=== PATIENT | female | born 1955 | race Caucasian/White ===

== ENCOUNTER 2016-12-20 18:38 | Emergency (ER) | payer MEDICAID ==
[~2016-12-20] VITALS: Ht 157.5 cm; Wt 58.5 kg
[~2016-12-20 18:38] MED LIST: ASPIRIN 81MG TA81 MG PO; ATORVASTATIN CA10 M1 PO; BUSPAR 10MG TAB10 MG PO; CLONAZEPAM0.5 M1 PO; CLOPIDOGREL75 M2 PO; GABAPENTIN300 M1 PO; KEFLEX 500MG.500 MG PO; LEVAQUIN500 MG PO; LOPRESSOR 25MG.25 M1 OR; MOTRIN 600MG.600 MG PO; PYRIDIUM200 M2 PO; TESSALON PERLE100 M1 PO; ZOFRAN ODT4 MG PO
[2016-12-20] MEDS ORDERED: BUSPAR 10MG TAB10 MG PO (18:55)
[2016-12-20] MEDS ORDERED: GABAPENTIN 600600 MG PO (18:56)
[2016-12-20] MEDS ORDERED: KLONOPIN 0.5MG0.5 MG NG (18:56)
[2016-12-20 19:12] LABS: HEMOGLOBIN 15.1 g/dL (12.2-16.2); LYMPH # 2.5 K/mm3 (0.7-4.5); LYMPH % 34.2 % (10-50.0)
--- NOTE | 2016-12-20 19:19 | Emergency Room Report ---
History of Present Illness Time Seen by [id number] Presenting Problem in Triage Pt arrived:Walked Presenting Problem:PT HAVING CHEST PAINS THIS MORNING, CALLED MD, WOULDN'T BE ABLE TO GET IN UNTIL MONDAY AND WAS SENT HERE. 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 N Clinical Suspician of Infection? N Mental Status: 1 - Regular (Normal Baseline) Sepsis Risk:Low Sepsis Risk Have you (or family members/close friends) recently traveled outside the [place]? N If Yes, where/when: Have you had exposure to infectious disease within the past month? TB? Other? Specify: 61 years old white female with history of vascular disease continues to smoke, at 2:30 AM she developed left-sided sharp back pain radiating to the anterior ribs. She took an aspirin and sat for half an hour and the pain resolved. 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 She came to the ER at 7 PM to be evaluated. She denies shortness of palpitations nausea vomiting dizziness and weakness. Normal pain for the past 17 hours. Source patient, RN notes reviewed, old records Exam Limitations no limitations ALLERGIES Coded Allergies: No Known Allergies (12/08/16) Home Medications Active Scripts Buspirone Hcl (Buspar 10MG) 10 MG PO BID 30 Days Prov: 10/02/14 CEPHALEXIN (Keflex 500MG Capsule) 500 MG PO Q8H #21 CAP Prov: 12/08/16 Phenazopyridine HCl (Pyridium) 200 MG PO TID #15 TAB Prov: 12/08/16 IBUPROFEN (Motrin 600MG) 600 MG PO Q8HP PRN pain #15 TAB Prov: 07/12/15 Benzonatate (Tessalon Perle) 100 MG PO Q4HP PRN couph #30 SGL Prov: 07/12/15 Reported Medications Atorvastatin Calcium 10 MG PO DAILY #30 Metoprolol Tartrate (Lopressor 25MG Tab (1/2 Of 50 MG)) 25 MG OR BID #30 Gabapentin 300 MG PO BID #90 CLOPIDOGREL BISULFATE (Clopidogrel) 75 MG PO DAILY #30 Clonazepam (Clonazepam 0.5MG) 0.5 MG PO BID #60 ASPIRIN (Aspirin) 81 MG PO DAILY Buspirone Hcl (Buspar 10MG) 10 MG PO TID Clonazepam (Klonopin 0.5MG) 0.5 MG NG TID Gabapentin (Gabapentin 600MG) 600 MG PO TID #90 History Medical History General CAD? No Angina: No OK: Yes Hypertension? Yes Hyperlipidemia? Yes CHF? No DVT? No PE? No COPD? No Asthma? No Anemia? No GERD? No Gastric ulcers? No GI Bleed? No Hernia? No Thyroid Problems? No Hypothyroidism? No CVA? Yes Seizures? No Diabetes? No Renal Insuffiency? No End Stage Renal Disease? No UTI? No Stones? No BPH? No GB Disease: No Nephritic Syndrome? No Asplenia? No Hepatitis? No Sickle Cell Disease? No Arthritis? No Migraines? No Cataracts? No Glaucoma? No MRSA? No HIV? No TB? No Anxiety? No Depression? No Cancer? No More? No Immunization Hx DT/Tetanus 1-4 Years Ago Flu Refused Pneumonia Never Had Surgical Hx Previous Surgery?Y RIGHT HAND STENTS IN BOTH LEGS Family History Family Hx Diabetes No CAD Yes Hypertension Yes Hyperlipidemia Yes Cancer Yes TB No Social History Smoking Hx Smoker: Current Every Day Smoker Tobacco: Yes Type Cigarettes Packs/day 1 1/2 - 2 Packs Alcohol Alcohol: No Review of Systems All Other Systems Reviewed and Negative Constitutional no symptoms reported Eyes no symptoms reported ENT no symptoms reported. Respiratory no symptoms reported Cardiovascular denies see HPI, chest pain Gastrointestinal no symptoms reported Genitourinary no symptoms reported. Musculoskeletal see HPI, back pain Skin no symptoms reported Psychiatric/Neurological no symptoms reported Physical Exam Vital Signs Vital Signs Date Time Temp Pulse Resp B/P Pulse O2 O2 Flow FiO2 Ox Delivery Rate 12/20 1849 97.7 89 20 195/94 98 General Appearance normal appearance, WD/WN Eye Exam - bilateral eye normal exam, bilateral eye PERRL, bilateral eye EOMI Ear, Nose, Throat hearing grossly normal, normal ENT inspection Neck normal inspection, non-tender, supple, full range of motion Respiratory Status Yes: trachea midline, chest symmetrical, non tender chest. No: respiratory distress. Lung Sounds bilateral: normal breath sounds, lungs clear. 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 No Results/Orders Laboratory Tests 12/20/161899: Sodium 142, Potassium 4.1, Chloride 106, Carbon Dioxide 26, BUN 12, Creatinine 0.7, Estimated Creat Clear 77, Estimated GFR (MDRD) 85, Glucose Pending, Calcium 9.0, Total Bilirubin 0.2, AST 31, ALT 51, Alkaline Phosphatase 157 H, Creatine Kinase 58, CK-MB (CK-2) Rel Index 0.9, CK and CKMB Interp < 0.5, Troponin I < 0.02, Total Protein 7.2, Albumin 3.7, Globulin 3.5 H, Albumin/Globulin Ratio 1.1, D-Dimer 230, WBC 7.2, RBC 4.96, Hgb 15.1, Hct 44.5, MCV 89.9, RDW 12.7, Plt Count 190, MPV 8.9, Gran % 54.4, Gran # 3.9, Lymphocytes % 34.2, Monocytes % 4.8 , Eosinophils % 5.6, Basophils % 1.0, Lymphocytes # 2.5, Monocytes # 0.4, Eosinophils # 0.4, Basophils # 0.1, PUBS MCHC 33.9, MCH 30.5 Current Medication Orders Sig/Deann Start time Last Medication Dose Route Stop Time Status Admin Sodium Chloride 10 ML PRN PRN 12/20 1899 AC IV 12/21 1858 Orders Procedure Date/time Status D-DIMER 12/20 1921 Complete ELECTROCARDIOGRAM REQUEST 12/20 1858 Active CHEST-PORTABLE 12/20 1858 Active IV SALINE LOCK 12/20 1858 Active CBC WITH AUTO DIFF 12/20 1858 Complete CARDIAC ENZYMES 12/20 1858 Active CHEM 12 PROFILE 12/20 1858 Active CM/EKG CM/EKG EKG rate, NSR, rhythm, no evid. of ischemic chgs, no ectopy, normal QRS, normal OK, normal EKG, no EKG for comparison, non-spec. ST/Twave chgs, ST elevation, ST depression, LBBB, RBBB, ectopy, abnormal Q waves Comments Normal sinus rhythm 90 per minute normal B QRS and T waves no acute findings XRAY/CT/US XRAY/CT/US XRAY chest XR interpretation by reviewed by me Xray Results normal/NAD Departure Departure Time of Disposition 1917 Disposition Still a Patient Clinical Impression Primary Impression: Atypical chest pain Condition STABLE Referrals AZIZA GARCIA (Family) Additional Instructions I discussed with Dr. Payan her history , exam and lab findings. He advised her to continue ASA and Plavix, stop smoking and to see him in the office , she is to return to the ED if needed. Dr. Krause Discharge Counseling Counseled pt/family regarding diagnosis, test results, follow up needs ED Critical Care Critical Care No If Critical Care minutes are documented, the time involved in the performance of seperately reportable procedures was not counted toward critical care time documented. I directly delivered medical care to this critically ill and/or injured patient. Timely evaluation and treatment was necessary to address the significant organ system(s) dysfunction present in this patient. at 2002
[2016-12-20 19:49] LABS: BUN 12 mg/dL (7-18)
[2016-12-20 19:53] LABS: GFR (ESTIMATED) 85 ML/MIN (59-)
[2016-12-20 20:11] VITALS: BP 186/92
--- NOTE | 2016-12-21 14:48 | RADIOLOGY REPORT PS360 ---
CHEST-PORTABLE HISTORY: CHEST PAIN ORDERING PHYSICIAN: Lise Krause MD PATIENT AGE: 61 years COMPARISON: None available FINDINGS: The cardiomediastinal silhouette and pulmonary vascularity are within normal limits. Linear markings are present in the left lung base consistent with atelectasis.. No acute bony abnormalities. IMPRESSION: Mild left basilar atelectasis otherwise negative
== END 2016-12-20 20:13 | disposition still patient (30) ==
LOC: ER 18:38
PROVIDERS: Emergency Medicine
DX: R07.89 Other chest pain (principal); F17.210 Nicotine dependence, cigarettes, uncomplicated; I25.2 Old myocardial infarction; I10 Essential (primary) hypertension; E78.5 Hyperlipidemia, unspecified; Z79.02 Long term (current) use of antithrombotics/antiplatelets; Z79.82 Long term (current) use of aspirin; Z79.899 Other long term (current) drug therapy

== ENCOUNTER → 2017-02-27 | Outpatient (CLI) | payer MEDICAID ==
[~2017-02-27] MED LIST changes: +GABAPENTIN 600600 MG PO; +KLONOPIN 0.5MG0.5 MG NG
--- NOTE | 2017-02-27 20:32 | RADIOLOGY REPORT PS360 ---
PROCEDURE: 2-D M-mode and color Doppler study INDICATIONS FOR THE TEST: Chest pain COPDX Heart Murmur Tobacco SmokingX Palpitations Fatigue Syncope Edema HypertensionXDiabetes Mellitus Rheumatic Fever SOB [place] Obesity Hyperlipidemia Family History HD Additional History CAD,CM PATIENT INFORMATION HEIGHT:61 WEIGHT:129 GENDER: Female B/P:110/70 2-D/M-MODE INTERPRETATION: 2-D MEASUREMENTS OBSERVED VALUES IN CMS Right Ventricular Dimension (RVDd) 1.3 Interventricular Septum (Thickness)(IVsd) .8 Left Ventricular Internal Dimensions(LVIDd) 4.3 Left Ventricular Posterior Wall (Thickness)(LVPWd) 1.1 Aortic Root 3.0 Aortic Cusp Separation 1.9 Left Atrial Dimensions (LAD) 2.8 2D 1. Left atrium is qualitatively mildly enlarged, left ventricle is normal size, there is preserved left ventricular systolic function, visually estimated ejection fraction 55% with no obvious regional wall motion abnormality, there is no concentric left ventricular hypertrophy present. 2. The right atrium and right ventricle are relatively normal size and function. 3. The aortic valve is minimally thickened and fibrosed. 4. The mitral valve leaflets are minimally thickened. 5. The tricuspid valve is grossly normal. 6. The pulmonic valve is poorly visualized. 7. No significant pericardial effusion noted. DOPPLER INTERROGATION: Doppler interrogation of the aortic, mitral and tricuspid valvular presence of mild mitral and tricuspid regurgitation, tricuspid and jet velocity insufficient for calculation of the right ventricular systolic pressure, tissue Doppler is indicated of raised left atrial pressure. CONCLUSION: 1. Mildly enlarged left atrium, normal left ventricular size, preserved left ventricular systolic function, visually estimated ejection fraction 55% with no obvious regional wall motion abnormality, tissue Doppler is indicated of raised left atrial pressure. 2. Mild mitral and tricuspid regurgitation. 3. No significant pericardial effusion noted.
== END ==
LOC: RT 08:00
DX: I42.1 Obstructive hypertrophic cardiomyopathy (principal); I25.10 Atherosclerotic heart disease of native coronary artery without angina pectoris; I10 Essential (primary) hypertension; I73.9 Peripheral vascular disease, unspecified; E78.5 Hyperlipidemia, unspecified; J44.9 Chronic obstructive pulmonary disease, unspecified; Z87.891 Personal history of nicotine dependence